=== PATIENT | female | born 1945 | race Two or more races ===

== ENCOUNTER 2021-09-19 10:30 | Inpatient (IN) | payer OTHER ==
[~2021-09-19] VITALS: Ht 152.4 cm; Wt 67.6 kg
[2021-09-19] MEDS ORDERED: AMLODIP PO (11:44)
[2021-09-19] MEDS ORDERED: ISORBIDE PO (11:45)
[2021-09-19] MEDS ORDERED: BISOPROLOL FUMA10 MG PO (11:45)
[2021-09-19] MEDS ORDERED: GLUMETZA500 MG PO (11:46)
[2021-09-19] MEDS ORDERED: LIPITOR40 M1 PO (11:46)
[2021-09-19] MEDS ORDERED: ZETIA10 MG PO (11:46)
[2021-09-19] MEDS ORDERED: GLIMEPIRIDE1 MG PO (11:47)
[2021-09-22] MEDS ORDERED: MEDROLPACK PO (13:06)
[2021-09-22] MEDS ORDERED: COLACE100 MG PO (13:06)
[2021-09-22] MEDS ORDERED: PERCOCET 5-3251 EACH PO (13:06)
[2021-09-22] MEDS ORDERED: AMOX-CLAV 875-1 EACH PO (13:06)
[2021-09-22] MEDS ORDERED: NEURONTIN800 MG PO (13:06)
== END 2021-09-24 16:41 | DRG 455 ==
LOC: SURG 09-21 10:30 → PED 09-22 07:15 → O/R 09-22 07:15 → PED 09-22 19:13
PROVIDERS: ADMIT Orthopaedic Surgery Orthopaedic Surgery of the Spine; ATTEND Orthopaedic Surgery Orthopaedic Surgery of the Spine
PROC: 0SG0071 Fusion of Lumbar Vertebral Joint with Autologous Tissue Substitute, Posterior Approach, Posterior Column, Open Approach (ICD-10-PCS; 2021-09-22)
PROC: 0ST20ZZ Resection of Lumbar Vertebral Disc, Open Approach (ICD-10-PCS; 2021-09-22)
PROC: 0QB30ZZ Excision of Left Pelvic Bone, Open Approach (ICD-10-PCS; 2021-09-22)
PROC: 07DR0ZZ Extraction of Iliac Bone Marrow, Open Approach (ICD-10-PCS; 2021-09-22)
PROC: 0SG00A0 Fusion of Lumbar Vertebral Joint with Interbody Fusion Device, Anterior Approach, Anterior Column, Open Approach (ICD-10-PCS; principal; 2021-09-22 12:00)
DX: M43.16 Spondylolisthesis, lumbar region (principal); M48.062 Spinal stenosis, lumbar region with neurogenic claudication; M51.36 Other intervertebral disc degeneration, lumbar region; I10 Essential (primary) hypertension; E11.9 Type 2 diabetes mellitus without complications